=== PATIENT | female | born 1990 | race Caucasian/White ===

== ENCOUNTER 2018-10-18 14:05 | Outpatient (CLI) | payer BC ==
--- NOTE | 2018-10-18 16:21 | RAD ---
CHEST FOUR VIEWS: HISTORY: Pain. COMPARISON: None. FINDINGS: PA, left oblique, right oblique, and lateral views of the chest demonstrate a normal cardiac silhouet te. The lungs and pleural spaces are clear. No pneumothorax or osseous abnormalities. IMPRESSION: Unremarkable four views chest. POS: OFF
== END 2018-10-18 14:06 | disposition home or self-care (01) ==
LOC: BICRAD 14:05
PROVIDERS: ATTEND Nurse Practitioner Family
DX: R07.89 Other chest pain (principal); M62.830 Muscle spasm of back; M25.511 Pain in right shoulder
CPT/HCPCS: 71048

== ENCOUNTER 2024-03-19 13:18 | Outpatient (CLI) | payer BC | END 2024-03-19 13:19 | disposition home or self-care (01) | LOC: BICRAD 13:18 | PROVIDERS: ATTEND Student in an Organized Health Care Education/Training Program | DX: M25.552 Pain in left hip (principal); M47.26 Other spondylosis with radiculopathy, lumbar region | CPT/HCPCS: 72100 ==